=== PATIENT | male | born 1990 | race Caucasian/White ===

== ENCOUNTER 2017-10-09 19:54 | Emergency (ER) | payer OTHER ==
[~2017-10-09] VITALS: Ht 175.3 cm; Wt 68.9 kg
[2017-10-09 22:33] LABS: HEMATOCRIT 43.8 % (38.0-50.0); HEMOGLOBIN 14.9 G/DL (12.5-16.6); MCH 29.9 PG (29.0-34.0); PLATELET COUNT 253 K/uL (156-360); RBC DIS.WIDTH-CV 12.3 % (11.8-14.6); RBC DIS.WIDTH-SD 39.6 % (39-53); RED BLOOD COUNT 4.98 M/uL (4.00-5.50); WHITE BLOOD COUNT 7.2 K/uL (4.1-10.2)
[2017-10-09 22:42] LABS: ALBUMIN 4.9 g/dL (3.2-4.8)
[2017-10-09 22:43] LABS: CHLORIDE 99 mEq/L (99-109); POTASSIUM 3.6 mEq/L (3.7-5.4); SODIUM 138 mEq/L (136-147)
[2017-10-09 22:45] LABS: GLUCOSE 87 mg/dL (70-99); TOTAL PROTEIN 8.1 g/dL (6.4-8.3)
[2017-10-09 22:47] LABS: TOTAL BILIRUBIN 0.8 mg/dL (0.0-1.0)
[2017-10-09 22:48] LABS: ALKALINE PHOSPHATASE 77 IU/L (3-129)
[2017-10-09 22:49] LABS: CREATININE 1.1 mg/dL (0.6-1.3); GFR ESTIMATE (CALCULATED) > 59 mL/min/ (58.99-99999)
[2017-10-09 22:50] LABS: AST (GOT) 27 IU/L (2-34); UREA NITROGEN (BUN) 6 mg/dL (9-23)
[2017-10-09 22:52] LABS: ALT (GPT) 20 IU/L (3-49); LIPASE 24 U/L (1.0-51.0)
[2017-10-09 23:08] LABS: APPEARANCE CLEAR ((CLEAR)); BILIRUBIN NEGATIVE; BLOOD NEGATIVE; COLOR STRAW ((YELLOW)); GLUCOSE (STRIP) NEGATIVE; KETONES 5; LEUKOCYTES NEGATIVE; NITRITE NEGATIVE; PROTEIN (STRIP) NEGATIVE; SPECIFIC GRAVITY 1.006 (1.000-1.030); UCUL ADDED? NO; UROBILINOGEN 0.2 MG/DL (0.2-1.0)
[2017-10-10 00:52] LABS: C DIFF TOXIN NEGATIVE (NEGATIVE)
[2017-10-10] MEDS ORDERED: BENTYL10 MG PO (00:59)
[2017-10-10] MEDS ORDERED: CIPRO500 MG PO (00:59)
[2017-10-10 01:28] VITALS: BP 134/93
== END 2017-10-10 01:29 | disposition home or self-care (01) ==
LOC: EME 19:54 → RME 19:54
PROVIDERS: Physician Assistant
DX: R19.7 Diarrhea, unspecified (principal); R10.9 Unspecified abdominal pain; Z88.0 Allergy status to penicillin
CPT/HCPCS: 74177; 80053; 81003; 83630; 83690; 85027; 86850; 86900; 86901; 87493; 87506; J1885; J2405; J7030